=== PATIENT | female | born 1945 | race Caucasian/White ===

== ENCOUNTER → 2017-04-12 | Outpatient (REF) | payer MEDICARE, OTHER ==
[~2017-04-12] MED LIST: ACET-1748 PO; AMLO-1 PO; AMLO-104 PO; AMLO-99 PO; ASPI81TA15 PO; ASPIRIN; BACDS PO; CEP500 PO; CEPH-13 PO; CEPH250C11 PO; CIP500 PO; DOCU100T19 PO; ESC10 PO; FERR325T3 PO; FOLTX PO; GABA-549 PO; HYDR200T38 PO; IBU600 PO; LABE100T28 PO; LEV500 PO; LEVO75TA68 PO; LIDO20SO25 MM; LISI-368 PO; LOR5/325 PO; LOS50 PO; LOSA-54 PO; OTC SLEEP AID; OXYC1TAB54 PO; PHENA100 PO; PHENA200 PO; POLY119P24 PO; POLY17PO PO; SER50 PO; TRAM-420 PO; TUM500 PO; VENL-248 PO; WAR5 PO; WARF1TAB56 PO; [UNRECOGNIZED DRUG - CODE] PO; [UNRECOGNIZED DRUG - OTHER]
== END ==
LOC: ZZSENDIN 17:34
PROVIDERS: ATTEND Urology
DX: N39.0 Urinary tract infection, site not specified (principal); R31.29 Other microscopic hematuria
CPT/HCPCS: 81001; 87088

== ENCOUNTER → 2017-05-30 | Outpatient (REF) | payer MEDICARE, OTHER ==
[~2017-05-30] MED LIST changes: -HYDR200T38 PO; +HYDR200T77 PO
== END ==
LOC: ZZSENDIN 11:04
PROVIDERS: ATTEND Family Medicine
DX: R31.21 Asymptomatic microscopic hematuria (principal)
CPT/HCPCS: 82310; 82374; 82435; 82565; 82947; 84132; 84295; 84520

== ENCOUNTER → 2017-06-07 | Outpatient (CLI) | payer MEDICARE, OTHER ==
[~2017-06-07] MED LIST changes: +IOPAMIDOL 76% 100 ML INFUS BTL 100 ML ONE; +NS 0.9% 150 ML BAG 150 ML ONE
--- NOTE | 2017-06-07 11:21 | RADIOLOGY IMAGING REPORT ---
FACILITY: [facility] PATIENT NAME: Barbara Santana : 1945 MR: [id number] V: [id number] EXAM DATE: ORDERING PHYSICIAN: CHERYL FAULKNER TECHNOLOGIST: Location: [facility] - [place] Patient: Barbara Santana : 1945 Visit/Account:[id number] Date of Sevice: 06/07/2017 ABDOMEN/PELVIS W/WO CONTRAST HISTORY: Hematuria, pelvic pain TECHNIQUE: Axial images acquired through the abdomen/pelvis both with and without IV contrast.. Deisy nal and sagittal reformatting also performed. Dose Lowering Technique One of the following dose optimization techniques was utilized in the performance of this exam: Autom ated exposure control; adjustment of the mA and/or kV according to the patient's size; or use of an i terative reconstruction technique. Specific details can be referenced in the facility's radiology C T exam operational policy. CONTRAST: 100 mL Isovue-370 COMPARISON: December 25, 2014 FINDINGS: Visualized lung bases: Negative. Hepatobiliary: Negative. Spleen: Negative. Adrenals: Negative. Pancreas: Negative. Kidneys ureters and bladder: There is a 1 cm hypodensity upper pole the left kidney likely a cyst. N o evidence of urolithiasis, hydronephrosis or hydroureter Genitalia: Hysterectomy GI: Negative. Vessels/spaces/nodes: There are at least moderate vascular calcifications present Bones/soft tissues: Extensive spondylotic changes lumbar spine again noted Additional findings: None pertinent. 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
== END ==
LOC: CT 01:23
PROVIDERS: ATTEND Urology
DX: M47.896 Other spondylosis, lumbar region (principal); I87.8 Other specified disorders of veins; Z90.79 Acquired absence of other genital organ(s); N28.9 Disorder of kidney and ureter, unspecified
CPT/HCPCS: 74178; Q9967

== ENCOUNTER → 2017-06-08 | Outpatient (REF) | payer MEDICARE, OTHER ==
[~2017-06-08] MED LIST changes: -IOPAMIDOL 76% 100 ML INFUS BTL 100 ML ONE; -NS 0.9% 150 ML BAG 150 ML ONE
== END ==
LOC: ZZSENDIN 11:30
PROVIDERS: ATTEND Urology
DX: R31.0 Gross hematuria (principal)
CPT/HCPCS: 88108

== ENCOUNTER → 2018-02-16 | Outpatient (REF) | payer MEDICARE, OTHER ==
[~2018-02-16] MED LIST changes: +AMLO-113 PO; -AMLO-99 PO
[2018-02-16 10:46] LABS: INR 1.2
== END ==
LOC: ZZSENDIN 10:22
PROVIDERS: ATTEND Family Medicine
DX: Z51.81 Encounter for therapeutic drug level monitoring (principal); Z79.01 Long term (current) use of anticoagulants
CPT/HCPCS: 85610

== ENCOUNTER 2018-09-29 11:15 | Emergency (ER) | payer MEDICARE, OTHER ==
[~2018-09-29 11:15] MED LIST changes: -AMLO-113 PO; +AMLO-127 PO
[2018-09-29] MEDS ORDERED: [UNRECOGNIZED DRUG - CODE] MC (11:26)
[2018-09-29] MEDS ORDERED: LINA290C PO (11:26)
[2018-09-29] MEDS ORDERED: METH1TAB58 PO (11:26)
[2018-09-29] MEDS ORDERED: ROPI1TAB36 PO (11:26)
--- NOTE | 2018-09-29 11:29 | ER Report ---
History and Physical Time Seen By MD: 11:21 Hx. of Stated Complaint: hx of lupus. increased redness across face for the past two months that progressed to scabs and spread across chest and arms HPI/ROS CHIEF COMPLAINT: Lupus flare up HISTORY OF PRESENT ILLNESS: This is a 73-year-old female who presents to the emergency department for a lupus flareup. Patient states that about a week ago her mylar rash began to flareup, was very itchy and uncomfortable, she saw her primary care provider who put her on a low-dose steroid for 5 days. She states that the therapist continued, she has cracks, scabs and has been itching now she has what appears to be an underlying bacterial infection. There is a little bit of a rash that has developed on her chest as well. She denies chest pain or shortness of breath. She does smoke cigarettes as well. She is not on immunosuppression, she's been off this for about a year. No fevers or chills. No nausea or vomiting. She does state that she's had increased stress over the last month which could be the impetus for the flareup. REVIEW OF SYSTEMS: Constitutional: No fever, no chills. Eyes: No discharge. ENT: No sore throat. Cardiovascular: No chest pain, no palpitations. Respiratory: As above. Gastrointestinal: No abdominal pain, no vomiting. Genitourinary: No hematuria. Musculoskeletal: No back pain. Skin: As above. Neurological: No headache. Allergies: Coded Allergies: Sulfa (Sulfonamide Antibiotics) (Verified Allergy, Intermediate, RASH, 09/29/18) Influenza Virus Vaccines (Verified Adverse Reaction, Unknown, 09/29/18) Home Meds Active Scripts Prednisone (PREDNISONE) 20 Mg Tablet, 40 MG PO DAILY, #10 TAB Take in the morning. Prov:KEVIN HARRIS [facility]- 09/29/18 Cephalexin 500 Mg Tab (KEFLEX 500 MG TAB) 500 Mg Tablet, 500 MG PO Q6H, #28 TAB Prov:KEVIN HARRIS [facility]- 09/29/18 Reported Medications Desonide (DESONIDE) 5 Gm Powder, 5 GM MC 09/29/18 Ropinirole Hcl (ROPINIROLE HCL) 1 Mg Tablet, 1 MG PO TID 09/29/18 Methenamine Hippurate (METHENAMINE HIPPURATE) 1 Gm Tablet, 1 GM PO 09/29/18 Linaclotide (LINZESS) 290 Mcg Capsule, 290 MCG PO, CAPSULE 09/29/18 Tramadol Hcl (TRAMADOL HCL) 50 Mg Tablet, 50 MG PO Q4-6H PRN for PAIN 05/03/14 Gabapentin (GABAPENTIN) 300 Mg Capsule, 300 MG PO TID, CAPSULE 05/03/14 Amlodipine Besylate (AMLODIPINE BESYLATE) 10 Mg Tablet, 1 TAB PO QDAY, TAB TAKE ONE TABLET BY MOUTH EVERY DAY 05/03/14 Venlafaxine Hcl (Venlafaxine Hcl) 75 Mg Tab.osm.24, 75 MG PO 04/22/12 Warfarin Sod (Coumadin (Or Equiv)) 5 Mg Tab, 5 MG PO QDAY STOPPED COUMADIN Tuesday05/16/[address] QURESHI'S INSTRUCTION it is very important that you take your coumadin exactly as prescribed, have blood work to monitor your PT/INR values, and follow up with your health care provider as prescribed. Diet and medication can affect the PT/INR level. Keep your diet pretty much the same day to day. Many foods contain Vitamin K which helps blood to clot and can affect the way your coumadin works. You don't need to avoid foods that have Vitamin K, but you do need to eat about the same amount of them every day. Be sure to tell your provider before changing your diet for any reason (weight loss, illness, etc.) Do not start or discontinue any medications, prescribed or over the counter, except on the advise of your provider or pharmacist. Coumadin (Warfarin) increases the risk of bleeding. 04/11/12 Losartan Potassium (COZAAR (OR EQUIV)) 50 Mg Tab, 50 MG PO QAM, #30 07/07/11 Levothyroxine Sodium (Levothyroxine Sodium) 75 Mcg Tablet, 88 MCG PO DAILY, 0 Refills 10/21/09 Discontinued Reported Medications Hydroxychloroquine Sulfate (PLAQUENIL) 200 Mg Tablet, 200 MG PO BID, #10 TAB TAKE 1 TABLET BY MOUTH EVERY DAY WITH FOOD 05/16/13 Aspirin (ASPIRIN) 81 Mg Tablet.dr, 81 MG PO BID 01/05/12 Clonazepam (CLONAZEPAM ODT) 0.5 Mg Tabdp, 0.5 MG PO QHS 07/03/11 Discontinued Scripts Hydrocodone Bit/Acetaminophen (HYDROCODON-ACETAMINOPHEN 5-325) 1 Each Tablet, 1 EACH PO Q4-6H for PAIN, #12 TAKE ONE TABLET BY MOUTH EVERY 4-6 HOURS NEEDED FOR PAIN Prov:JENNIFER MILAN MD 05/03/14 Polyethylene Glycol 3350 (MIRALAX) 119 Gm Powder, 119 GM PO BID for 30 Days Prov:JENNIFER MILAN MD 05/03/14 Past Medical/Surgical History The patient has a past medical and surgical history of DVT, hypertension, slow bowels, pain to the right arm, back pain, lupus, pulmonary embolus, depression, bladder lift with oophorectomy, partial hysterectomy, rotator cuff repair, back surgery, tonsillectomy, cataract removal. Reviewed Nurses Notes: Yes Hx Smoking: Yes (1/2 PPD) Smoking Status: Current: Every Day Smoker Hx Substance Use Disorder: No Hx Alcohol Use: No Constitutional Vital Sign - Last 24 Hours 09/29/18 09/29/18 09/29/18 09/29/18 11:19 11:30 12:20 12:20 Temp 98.3 Pulse 77 81 71 Resp 20 18 B/P (MAP) 121/61 120/62 (81) Pulse Ox 95 88 91 O2 Delivery Room Air Nasal Cannula O2 Flow Rate 0.5 09/29/18 09/29/18 09/29/18 12:27 12:30 13:00 Pulse 70 76 74 Resp 18 B/P (MAP) 114/57 (76) 99/50 (66) Pulse Ox 89 98 Physical Exam General Appearance: The patient is alert, has no immediate need for airway protection and no signs of toxicity. Eyes: Pupils equal and round no pallor or injection. ENT, Mouth: Mucous membranes are moist. Extending Malar rash to the external ears, bilaterally with some lesions that are crusted over, no drainage. TMs are pearly escobar, landmarks noted, no involvement. Normal ear canals. Respiratory: There are some faint inspiratory and x-ray wheezes mixed with some coarse lung sounds throughout however the patient is not short of breath. Cardiovascular: Regular rate and rhythm. No murmurs, clicks or rubs. Gastrointestinal: Abdomen is soft and non tender, no masses, bowel sounds normal. Neurological: Alert and oriented 4. Moving all extremities. Following all commands. No focal neurodeficits. Skin: Malar rash over nose, cheeks and chin, extending to the ears, with some scattered lesions to the chest , the entire area erythematous with healing lesions and large multiple scabs present, there doesn't appear to be the start of an underlying cellulitic infection. The cheeks are warm and painful to touch. No drainage currently. Musculoskeletal: Neck is supple non tender. Extremities are nontender, nonswollen and have full range of motion. DIFFERENTIAL DIAGNOSIS: After history and physical exam differential diagnosis was considered for cellulitis, lupus flare, pneumonia. Medical Decision Making Data Points Result Diagram: 09/29/18 1136 09/29/18 1136 Laboratory Hematology Test 09/29/18 11:36 09/29/18 11:56 09/29/18 14:45 Red Blood Count 3.12 M/uL (4.17-5.56) Mean Corpuscular Volume 80.2 fL (80.0-96.0) Mean Corpuscular Hemoglobin 26.9 pg (26.0-33.0) Mean Corpuscular Hemoglobin Concent 33.5 g/dL (32.0-36.0) Red Cell Distribution Width 18.9 % (11.5-14.5) Mean Platelet Volume 7.1 fL (7.2-11.1) Neutrophils (%) (Auto) 77.2 % (39.4-72.5) Lymphocytes (%) (Auto) 13.2 % (17.6-49.6) Monocytes (%) (Auto) 9.1 % (4.1-12.4) Eosinophils (%) (Auto) 0.0 % (0.4-6.7) Basophils (%) (Auto) 0.5 % (0.3-1.4) Nucleated RBC Relative Count (auto) 0.0 /100WBC Neutrophils # (Auto) 3.0 K/uL (2.0-7.4) Lymphocytes # (Auto) 0.5 K/uL (1.3-3.6) Monocytes # (Auto) 0.4 K/uL (0.3-1.0) Eosinophils # (Auto) 0.0 K/uL (0.0-0.5) Basophils # (Auto) 0.0 K/uL (0.0-0.1) Nucleated RBC Absolute Count (auto) 0.00 K/uL Peripheral Blood Smear No Y/N Erythrocyte Sedimentation Rate 23 mm/HOUR (0-30) Sodium Level 125 mmol/L (137-145) Potassium Level 2.7 mmol/L (3.5-5.0) Chloride Level 91 mmol/L (98-107) Carbon Dioxide Level 24 mmol/L (22-31) Blood Urea Nitrogen 9 mg/dl (7-18) Creatinine 0.60 mg/dl (0.52-1.04) Glomerular Filtration Rate Calc > 60.0 Random Glucose 121 mg/dl (75-110) Calcium Level 8.1 mg/dl (8.4-10.2) Magnesium Level 1.6 mg/dl (1.7-2.2) Total Bilirubin 0.4 mg/dl (0.2-1.3) Aspartate Amino Transf (AST/SGOT) 27 U/L (0-35) Alanine Aminotransferase (ALT/SGPT) 44 U/L (0-56) Alkaline Phosphatase 110 U/L (0-126) C-Reactive Protein 1.4 mg/dl (<1.0) Total Protein 6.0 g/dl (6.3-8.2) Albumin 3.3 g/dl (3.5-5.0) Prothrombin Time 23.2 seconds (12.0-14.4) Prothromb Time International Ratio 2.02 Activated Partial Thromboplast Time 46 seconds (23-35) Urine Color Straw Urine Clarity Clear Urine pH 6.0 pH (4.8-9.5) Urine Specific [place] 1.002 Urine Protein Negative mg/dL (NEGATIVE) Urine Glucose (UA) Negative mg/dL (NEGATIVE) Urine Ketones Negative mg/dL (NEGATIVE) Urine Blood Small (NEGATIVE) Urine Nitrite Negative (NEGATIVE) Urine Bilirubin Negative (NEGATIVE) Urine Urobilinogen Negative mg/dL (0.2-1.9) Urine Leukocyte Esterase Negative (NEGATIVE) Urine RBC <1 /HPF (0-2/HPF) Urine WBC <1 /HPF (0-5/HPF) Urine Squamous Epithelial Cells Few /LPF (</=FEW) Urine Bacteria Negative /HPF (NONE-FEW) Urine Mucus None /HPF (NONE-FEW) Urine Osmolality 80 mosm/K (500-800) Urine Random Sodium 5 MEQ/L Chemistry Test 09/29/18 11:36 09/29/18 11:56 09/29/18 14:45 White Blood Count 3.9 k/uL (4.5-11.0) Red Blood Count 3.12 M/uL (4.17-5.56) Hemoglobin 8.4 g/dL (12.0-16.0) Hematocrit 25.0 % (34.0-47.0) Mean Corpuscular Volume 80.2 fL (80.0-96.0) Mean Corpuscular Hemoglobin 26.9 pg (26.0-33.0) Mean Corpuscular Hemoglobin Concent 33.5 g/dL (32.0-36.0) Red Cell Distribution Width 18.9 % (11.5-14.5) Platelet Count 269 K/uL (150-450) Mean Platelet Volume 7.1 fL (7.2-11.1) Neutrophils (%) (Auto) 77.2 % (39.4-72.5) Lymphocytes (%) (Auto) 13.2 % (17.6-49.6) Monocytes (%) (Auto) 9.1 % (4.1-12.4) Eosinophils (%) (Auto) 0.0 % (0.4-6.7) Basophils (%) (Auto) 0.5 % (0.3-1.4) Nucleated RBC Relative Count (auto) 0.0 /100WBC Neutrophils # (Auto) 3.0 K/uL (2.0-7.4) Lymphocytes # (Auto) 0.5 K/uL (1.3-3.6) Monocytes # (Auto) 0.4 K/uL (0.3-1.0) Eosinophils # (Auto) 0.0 K/uL (0.0-0.5) Basophils # (Auto) 0.0 K/uL (0.0-0.1) Nucleated RBC Absolute Count (auto) 0.00 K/uL Peripheral Blood Smear No Y/N Erythrocyte Sedimentation Rate 23 mm/HOUR (0-30) Glomerular Filtration Rate Calc > 60.0 Calcium Level 8.1 mg/dl (8.4-10.2) Magnesium Level 1.6 mg/dl (1.7-2.2) Total Bilirubin 0.4 mg/dl (0.2-1.3) Aspartate Amino Transf (AST/SGOT) 27 U/L (0-35) Alanine Aminotransferase (ALT/SGPT) 44 U/L (0-56) Alkaline Phosphatase 110 U/L (0-126) C-Reactive Protein 1.4 mg/dl (<1.0) Total Protein 6.0 g/dl (6.3-8.2) Albumin 3.3 g/dl (3.5-5.0) Prothrombin Time 23.2 seconds (12.0-14.4) Prothromb Time International Ratio 2.02 Activated Partial Thromboplast Time 46 seconds (23-35) Urine Color Straw Urine Clarity Clear Urine pH 6.0 pH (4.8-9.5) Urine Specific [place] 1.002 Urine Protein Negative mg/dL (NEGATIVE) Urine Glucose (UA) Negative mg/dL (NEGATIVE) Urine Ketones Negative mg/dL (NEGATIVE) Urine Blood Small (NEGATIVE) Urine Nitrite Negative (NEGATIVE) Urine Bilirubin Negative (NEGATIVE) Urine Urobilinogen Negative mg/dL (0.2-1.9) Urine Leukocyte Esterase Negative (NEGATIVE) Urine RBC <1 /HPF (0-2/HPF) Urine WBC <1 /HPF (0-5/HPF) Urine Squamous Epithelial Cells Few /LPF (</=FEW) Urine Bacteria Negative /HPF (NONE-FEW) Urine Mucus None /HPF (NONE-FEW) Urine Osmolality 80 mosm/K (500-800) Urine Random Sodium 5 MEQ/L Coagulation Test 09/29/18 11:56 Prothrombin Time 23.2 seconds Prothromb Time International Ratio 2.02 Activated Partial Thromboplast Time 46 seconds Urinalysis Test 09/29/18 14:45 Urine Color Straw Urine Clarity Clear Urine pH 6.0 pH (4.8-9.5) Urine Specific [place] 1.002 Urine Protein Negative mg/dL (NEGATIVE) Urine Glucose (UA) Negative mg/dL (NEGATIVE) Urine Ketones Negative mg/dL (NEGATIVE) Urine Blood Small (NEGATIVE) Urine Nitrite Negative (NEGATIVE) Urine Bilirubin Negative (NEGATIVE) Urine Urobilinogen Negative mg/dL (0.2-1.9) Urine Leukocyte Esterase Negative (NEGATIVE) Urine RBC <1 /HPF (0-2/HPF) Urine WBC <1 /HPF (0-5/HPF) Urine Squamous Epithelial Cells Few /LPF (</=FEW) Urine Bacteria Negative /HPF (NONE-FEW) Urine Mucus None /HPF (NONE-FEW) Urine Osmolality 80 mosm/K (500-800) Urine Random Sodium 5 MEQ/L EKG/Imaging EKG Interpretation 12 lead EKG: Time of EKG 1330. Rhythm: Normal sinus rhythm, that she could've rate 81 bpm. [place]: normal QRS: normal ST segments: Poor T-wave progression in the V leads, inverted T waves in V3, V4, V5 and V6. No ST depression or elevation identified. Imaging PATIENT NAME: Barbara Santana : 1945 MR: [id number] V: [id number] EXAM DATE: ORDERING PHYSICIAN: KEVIN HARRIS TECHNOLOGIST: Location: [facility] - [place] Patient: Barbara Santana : 1945 Visit/Account:[id number] Date of Sevice: 09/29/2018 Exam type: CHEST PA LAT History: Lupus flare Comparison: May 09, 2013 Findings: There is mild right apical pleural thickening. The lungs are free of acute effusions infiltrates or edema. The cardiac silhouette is normal in size. Trachea is in midline.. IMPRESSION: 1. No acute cardiac pulmonary process is seen Report Dictated By: Marianne Downs MD at 09/29/2018 12:54 PM Report E-Signed By: Marianne Downs MD at 09/29/2018 12:55 PM WSN:LARY ED Course/Re-evaluation Clinical Indication for ER IV: Hydration, IV Access ED Course The patient was admitted to room. A history of physical were obtained. Differential diagnoses were considered. An IV was started. A CBC, CMP were obtained. A 1 L normal saline bolus was given. CBC showing the WBCs 3.9, H&H 8.4 and 25, platelets 269, sodium 125, potassium 2.7, normal creatinine, magnesium 1.6, CRP 1.4, normal ESR, total protein 6.0, urine with small blood, otherwise unremarkable, urine osmolality 80. Negative two-view chest x-ray. EKG showing normal sinus rhythm with poor T-wave progression. I did review the laboratory studies with the patient, I did explain to her that I was concerned with the anemia as well as the low potassium and low sodium of October was able to contact Dr. Espinoza's office, her primary care provider I did have a chemistry from 2018 and she did have low sodium then, and according to patient she has had low sodium for some time. The potassium on the 2018 panel was normal. I did speak with Dr. marisela Lopes as noted below, he did, and evaluate the patient, the patient does have some reluctance to admission, she does prefer to go home, they're to [facility] and I are both agreeable with a discharge, she will follow- up with her primary care provider and learning and development administrator next week for reevaluation. She will also return Tuesday to have a repeat CBC and BMP. There were additional lab studies sent out in the hopes to accelerate her follow-up with her primary care provider. Patient was given a subsequent 40mg/day prednisone burst x5 days, she was also given 125 mg IV Solu-Medrol in the ER, I also started her on Keflex. The patient will return to the ER for any other concerns or worsening symptoms. Patient was agreeable with this plan of care and discharged home. The patient's INR is 2.02. 09/29/2018 1:44:33 pm I did speak with Dr. Lopes, the hospitalist allergist/pediatric pulmonologist, he will come and evaluate the patient for possible admission. Decision to Disposition Date: Sep 29, 2018 Decision to Disposition Time: 14:54 Depart Departure Latest Vital Signs Vital Signs Date Time Temp Pulse Resp B/P (MAP) Pulse Ox O2 Delivery O2 Flow Rate FiO2 09/29/18 13:00 74 99/50 (66) 98 09/29/18 12:27 18 09/29/18 12:20 Nasal Cannula 0.5 09/29/18 11:19 98.3 Impression: Primary Impression: Cellulitis of face Additional Impressions: Malar rash Lupus Anemia Hypokalemia Hyponatremia Condition: Improved Disposition: HOME OR SELF-CARE Referrals: JENNIFER ROSS JOHN A MD New Scripts Prednisone (PREDNISONE) 20 Mg Tablet 40 MG PO DAILY, #10 TAB Take in the morning. Prov: KEVIN HARRISP-BC 09/29/18 Cephalexin 500 Mg Tab (KEFLEX 500 MG TAB) 500 Mg Tablet 500 MG PO Q6H, #28 TAB Prov: KEVIN HARRISP-BC 09/29/18 Patient Instructions: Cellulitis (ED), Hypokalemia (ED), Hyponatremia (ED), Lupus Erythematosus (DC) Additional Instructions: Please stop your aspirin. Follow up with your learning and development administrator and primary care provider next week for reevaluation. Return to the laboratory Tuesday for a redraw on your CBC and BMP. Please bring the prescription to the laboratory with you. Take the Keflex as prescribed. Take the higher dose of prednisone for the next 5 days. You may need to restart your Plaquenil. You may need a colonoscopy as well, this could be where you are losing blood, he can follow-up with Dr. Gutierres or Dr. Ross locally for colonoscopy consultation. Please follow up with Urology too. Problem Qualifiers Additional Impressions: Anemia Anemia type: unspecified type Qualified Codes: D64.9 - Anemia, unspecified KEVIN HARRIS PSYCHOLOGY CLINICIAN-BC Sep 29, 2018 11:29
[2018-09-29] MEDS ORDERED: NS(*) 0.9% 1000 ML BAG 1,000 ML IV ONE (11:50)
[2018-09-29] MEDS ORDERED: methylPREDNIS SUCC 125 MG/2ML IVP ONE (11:50)
[2018-09-29] MEDS ORDERED: ALBUTEROL/IPRATROPIUM 3 ML NEB NEB ONE (11:55)
[2018-09-29 11:56] LABS: PLATELET COUNT, AUTOMATED 269 K/uL (150-450)
[2018-09-29 13:00] VITALS: BP 99/50
--- NOTE | 2018-09-29 13:02 | RADIOLOGY IMAGING REPORT ---
FACILITY: [facility] - [place] PATIENT NAME: Barbara Santana : 1945 MR: [id number] V: [id number] EXAM DATE: ORDERING PHYSICIAN: KEVIN HARRIS TECHNOLOGIST: Location: Patient: Barbara Santana : 1945 Visit/Account:[id number] Date of Sevice: 09/29/2018 Exam type: CHEST PA LAT History: Lupus flare Comparison: May 09, 2013 Findings: There is mild right apical pleural thickening. The lungs are free of acute effusions infiltrates or edema. The cardiac silhouette is normal in size. Trachea is in midline.. IMPRESSION: 1. No acute cardiac pulmonary process is seen Report Dictated By: Marianne Downs MD at 09/29/2018 12:54 PM Report E-Signed By: Marianne Downs MD at 09/29/2018 12:55 PM WSN:AMICIVN
--- NOTE | 2018-09-29 13:45 | EKG ---
FACILITY: [facility] PATIENT NAME: LUIS HOLLEY : [id number] MR: [id number] V: [id number] EXAM DATE: ORDERING PHYSICIAN: KEVIN HARRIS TECHNOLOGIST: RHONDA Test Reason : low potassium Blood Pressure : / mmHG Vent. Rate : 081 BPM Atrial Rate : 081 BPM P-R Int : 140 ms QRS Dur : 080 ms QT Int : 394 ms P-R-T Axes : 074 062 025 degrees QTc Int : 457 ms Normal sinus rhythm ST and T wave abnormality, consider inferolateral ischemia Abnormal ECG When compared with ECG of 18-MAY-2013 06:30, T wave inversion now evident in Inferior leads T wave inversion now evident in Anterolateral leads Confirmed by SHRUTHI BAUER ([id number]) on 09/29/2018 10:15:04 PM Referred By: Confirmed By:SHRUTHI BAUER
[2018-09-29] MEDS ORDERED: MAGNESIUM SUL* 2 GM/50 ML IVPB 50 ML IVPB ONE (14:40)
[2018-09-29] MEDS ORDERED: POTASSIUM CHL 20 MEQ TABCR PO SCH (14:40)
[2018-09-29] MEDS ORDERED: CEPH500T7 PO (15:16)
[2018-09-29] MEDS ORDERED: PRED20TA6 PO (15:16)
--- NOTE | 2018-09-29 15:38 | Hospitalist Consultation ---
History of Present Illness Requesting Physician Josafat Reason for Consult Hyponatremia, anemia, hypokalemia History of Present Illness 73yo female with a h/o SLE, chronic cigarette use, and hyponatremia who came to the ER for worsening face rash related to SLE. For about the last 6 weeks, she has had a progressive malar rash. It is like what she gets with SLE. Prior to the rash she had a self limited eruption of mouth sores. She was given a course of prednisone by her PCP just recently for the malar rash, which hasn't helped. She is also having a rash on the dorsal aspect of her fingers of the right hand. She denies f/c/MCMAHAN/n/v/diarrhea/melena/bloody stools/orthopnea. She reports having a low sodium for at least 2 years. She denies any h/o CAD or CVD. History Problems: (1) IBS (irritable bowel syndrome) (2) Fibromyalgia (3) Depression (4) History of DVT (deep vein thrombosis) Status: Chronic (5) RLS (restless legs syndrome) (6) Recurrent UTI (7) Hematuria (8) SLE (systemic lupus erythematosus) Status: Chronic Home Meds Reported Medications Desonide (DESONIDE) 5 Gm Powder, 5 GM MC 09/29/18 Ropinirole Hcl (ROPINIROLE HCL) 1 Mg Tablet, 1 MG PO TID 09/29/18 Methenamine Hippurate (METHENAMINE HIPPURATE) 1 Gm Tablet, 1 GM PO 09/29/18 Linaclotide (LINZESS) 290 Mcg Capsule, 290 MCG PO, CAPSULE 09/29/18 Tramadol Hcl (TRAMADOL HCL) 50 Mg Tablet, 50 MG PO Q4-6H PRN for PAIN 05/03/14 Gabapentin (GABAPENTIN) 300 Mg Capsule, 300 MG PO TID, CAPSULE 05/03/14 Amlodipine Besylate (AMLODIPINE BESYLATE) 10 Mg Tablet, 1 TAB PO QDAY, TAB TAKE ONE TABLET BY MOUTH EVERY DAY 05/03/14 Venlafaxine Hcl (Venlafaxine Hcl) 75 Mg Tab.osm.24, 75 MG PO 04/22/12 Warfarin Sod (Coumadin (Or Equiv)) 5 Mg Tab, 5 MG PO QDAY STOPPED COUMADIN Tuesday05/16/[address] QURESHI'S INSTRUCTION it is very important that you take your coumadin exactly as prescribed, have blood work to monitor your PT/INR values, and follow up with your health care provider as prescribed. Diet and medication can affect the PT/INR level. Keep your diet pretty much the same day to day. Many foods contain Vitamin K which helps blood to clot and can affect the way your coumadin works. You don't need to avoid foods that have Vitamin K, but you do need to eat about the same amount of them every day. Be sure to tell your provider before changing your diet for any reason (weight loss, illness, etc.) Do not start or discontinue any medications, prescribed or over the counter, except on the advise of your provider or pharmacist. Coumadin (Warfarin) increases the risk of bleeding. 04/11/12 Losartan Potassium (COZAAR (OR EQUIV)) 50 Mg Tab, 50 MG PO QAM, #30 07/07/11 Levothyroxine Sodium (Levothyroxine Sodium) 75 Mcg Tablet, 88 MCG PO DAILY, 0 Refills 10/21/09 Discontinued Reported Medications Hydroxychloroquine Sulfate (PLAQUENIL) 200 Mg Tablet, 200 MG PO BID, #10 TAB TAKE 1 TABLET BY MOUTH EVERY DAY WITH FOOD 05/16/13 Aspirin (ASPIRIN) 81 Mg Tablet.dr, 81 MG PO BID 01/05/12 Clonazepam (CLONAZEPAM ODT) 0.5 Mg Tabdp, 0.5 MG PO QHS 07/03/11 Discontinued Scripts Hydrocodone Bit/Acetaminophen (HYDROCODON-ACETAMINOPHEN 5-325) 1 Each Tablet, 1 EACH PO Q4-6H for PAIN, #12 TAKE ONE TABLET BY MOUTH EVERY 4-6 HOURS NEEDED FOR PAIN Prov:JENNIFER MILAN MD 05/03/14 Polyethylene Glycol 3350 (MIRALAX) 119 Gm Powder, 119 GM PO BID for 30 Days Prov:JENNIFER MILAN MD 05/03/14 Allergies: Coded Allergies: Sulfa (Sulfonamide Antibiotics) (Verified Allergy, Intermediate, RASH, 09/29/18) Influenza Virus Vaccines (Verified Adverse Reaction, Unknown, 09/29/18) Other Social/Family Hx 1/2 to 1ppd for over 50yrs. No current alcohol use. Lives with her SO. Hx Smoking: Yes (1/2 PPD) Smoking Status: Current: Every Day Smoker Caffeine Intake: Coffee Caffeine/Cups Per Day: 6 Hx Alcohol Use: No Hx Substance Use Disorder: No Review of Systems All Systems Reviewed/Normal: Yes, Except as Noted Exam Vital Signs Vital Signs Date Time Temp Pulse Resp B/P (MAP) Pulse Ox O2 Delivery O2 Flow Rate FiO2 09/29/18 13:00 74 99/50 (66) 98 09/29/18 12:27 18 09/29/18 12:20 Nasal Cannula 0.5 09/29/18 11:19 98.3 General Appearance: Alert, Awake, No Acute Distress Neuro: No Gross deficits ENT: Moist Mucous Membranes Cardiovascular: Regular Rate and Rhythm Respiratory: Clear to Auscultation GI: Abd Soft and Non-Tender Extremities: No Edema Integumentary: Other (Erthematous, patchy, well demarcated rash on cheeks/ears /forehead/fingers/chest. Most areas with central scabbing) Medical Decision Making Data Points Result Diagram: 09/29/18 1136 09/29/18 1136 Item Value Date Time Erythrocyte Sedimentation Rate 23 mm/HOUR 09/29/18 1136 Neutrophils (%) (Auto) 77.2 % H 09/29/18 1136 Lymphocytes (%) (Auto) 13.2 % L 09/29/18 1136 Monocytes (%) (Auto) 9.1 % 09/29/18 1136 Eosinophils (%) (Auto) 0.0 % L 09/29/18 1136 Total Bilirubin 0.4 mg/dl 09/29/18 1136 Aspartate Amino Transf (AST/SGOT) 27 U/L 09/29/18 1136 Magnesium Level 1.6 mg/dl L 09/29/18 1136 Alanine Aminotransferase (ALT/SGPT) 44 U/L 09/29/18 1136 Alkaline Phosphatase 110 U/L 09/29/18 1136 C-Reactive Protein 1.4 mg/dl H 09/29/18 1136 Total Protein 6.0 g/dl L 09/29/18 1136 Albumin 3.3 g/dl L 09/29/18 1136 EKG / Imaging Imaging CXR - 1. No acute cardiac pulmonary process is seen Assessment and Plan Problems: (1) Anemia Status: Acute Assessment & Plan: Asymptomatic. BP/P wnl. Likely, slowly worsening. We don't have recent labs to compare ([facility] or Dr. Bean's office). She reports having recent normal stool testing for colon cancer and more distant normal colonoscopy. She is on warfarin and ASA. No melena, increased BM frequency or cliff blood in stool. She does have a h/o hematuria that has been followed by Dr. Soto. Certainly, this could be related to SLE. I offered admission to expedite the work up, but she wanted to do it as an outpatient. She is to get an UA, iron studies, B12 and Folate, reticulocyte count, and ferritin studies done. She is to get a CBC on 10/02. She likely needs a colonoscopy. I told her to stop ASA because it was for primary prevention only. (2) Hypokalemia Status: Acute Assessment & Plan: Etiology unclear. She had a low potassium on 05/30/17. She is not on any offending medications. She denies vomiting or diarrhea. Mg was low. As mentioned above, she was offered admission for repletion, but also closer monitoring, but she wants to get replacement in the ER and then have close followup. She is to get a BMP on 10/02. (3) Hyponatremia Status: Chronic Assessment & Plan: She reports having this for a couple of years. She had a sodium of 124 back on 05/30/[address] Bean had more recent records showing a sodium of 127. She isn't on any diuretics, but is on an SSRI. She is to get a urine osmolality and urine sodium done before being sent from the ER. She is to get a BMP on 10/02. (4) Malar rash Status: Acute Assessment & Plan: Secondary to SLE. She has been off of Plaquenil for about a year. She has had 5 day course of 20mg of prednisone with little improvement. Likely, she needs to be back on Plaquenil. She is going to follow up with Dr. Mejias next week. (5) History of DVT (deep vein thrombosis) Status: Chronic Assessment & Plan: Chronically on warfarin. (6) SLE (systemic lupus erythematosus) Status: Chronic Assessment & Plan: Reportedly no systemic involvement, but with the h/o hematuria, and new leukopenia/anemia; concerned that it has advanced off of treatment. See above. Copies to: MAEGAN BEAN MD; KEVIN HARRIS [employer]OLDING ENGINEER-; PK MEJIAS MD ; Venous Thromboembolism Antithrombotics Is Pt On Any Antithrombotics?: Yes Exam Sepsis Risk: No Definite Risk Problem Qualifiers (1) Anemia: Anemia type: unspecified type Qualified Codes: D64.9 - Anemia, unspecified SHRTUHI BAUER MD Sep 29, 2018 15:38
[2018-09-29 15:52] LABS: INR 2.02
== END 2018-09-29 15:20 | disposition home or self-care (01) ==
LOC: ER 11:23
DX: M32.9 Systemic lupus erythematosus, unspecified (principal); D64.9 Anemia, unspecified; Z86.718 Personal history of other venous thrombosis and embolism; Z79.01 Long term (current) use of anticoagulants; R21 Rash and other nonspecific skin eruption; E87.1 Hypo-osmolality and hyponatremia; E87.6 Hypokalemia; Z79.82 Long term (current) use of aspirin; I10 Essential (primary) hypertension; Z86.711 Personal history of pulmonary embolism; F32.9 Major depressive disorder, single episode, unspecified
CPT/HCPCS: 71046; 81001; 83735; 83935; 84300; 85025; 85610; 85651; 85730; 86140; 93005; 94640; 96361; 96374; 96375; 99284; A9270; J2930; J3475; J7030; J7620; 82040; 82247; 82310; 82374; 82435; 82565; 82607; 82728; 82746; 82947; 83540; 83550; 84075; 84132; 84155; 84295; 84450; 84460; 84520; 85045

== ENCOUNTER → 2018-10-02 | Outpatient (CLI) | payer MEDICARE, OTHER ==
[~2018-10-02] MED LIST changes: +CEPH500T7 PO; +LINA290C PO; +METH1TAB58 PO; +PRED20TA6 PO; +ROPI1TAB36 PO; +[UNRECOGNIZED DRUG - CODE] MC
[2018-10-02 12:29] LABS: PLATELET COUNT, AUTOMATED 359 K/uL (150-450)
== END ==
LOC: LAB 11:28
PROVIDERS: ATTEND Nurse Practitioner Family
DX: E87.6 Hypokalemia (principal); E87.1 Hypo-osmolality and hyponatremia; D64.9 Anemia, unspecified; E83.42 Hypomagnesemia
CPT/HCPCS: 36415; 82310; 82374; 82435; 82565; 82947; 84132; 84295; 84520; 85025

== ENCOUNTER 2018-10-23 11:55 | Inpatient (IN) | payer MEDICARE, OTHER ==
[~2018-10-23] VITALS: Ht 160 cm; Wt 60.6 kg
--- NOTE | 2018-10-23 11:58 | ER Report ---
History and Physical Time Seen By MD: 11:54 HPI/ROS CHIEF COMPLAINT: Hyponatremia, hypokalemia HISTORY OF PRESENT ILLNESS: Patient is a 73-year-old female here with complaints of hyponatremia, hypokalemia, several day history of general malaise today with complaints of mild altered mental status, somnolence. Patient's . Patient does have a history of lupus, with cutaneous manifestations currently on prednisone. Patient was seen at her primary care provider's office and was found to have hyponatremia referred to the emergency department. Patient is neurovascularly intact at time of evaluation, cranial nerves are intact. Patient is afebrile at time of evaluation REVIEW OF SYSTEMS: Constitutional: No fever, no chills. Eyes: No discharge. ENT: No sore throat. Cardiovascular: No chest pain, no palpitations. Respiratory: No cough, no shortness of breath. Gastrointestinal: No abdominal pain, no vomiting. Genitourinary: No hematuria. Musculoskeletal: No back pain. Skin: No rashes. Neurological: No headache.+ Mild somnolence, cranial nerves intact, moving all extremities spontaneously Allergies: Coded Allergies: Sulfa (Sulfonamide Antibiotics) (Verified Allergy, Intermediate, RASH, 09/29/18) Influenza Virus Vaccines (Verified Adverse Reaction, Unknown, 09/29/18) Home Meds Active Scripts Prednisone (PREDNISONE) 20 Mg Tablet, 40 MG PO DAILY, #10 TAB Take in the morning. Prov:KEVIN HARRIS [employer]- 09/29/18 Reported Medications Levothyroxine Sodium (LEVOTHYROXINE SODIUM) 50 Mcg Tablet, 50 MCG PO QDAY, TAB 10/23/18 Atorvastatin Calcium (LIPITOR) 10 Mg Tablet, 1 TAB PO QDAY, TAB 10/23/18 Venlafaxine Hcl (EFFEXOR XR) 150 Mg Cap.er.24h, 150 MG PO QDAY 10/23/18 Losartan/Hydrochlorothiazide (LOSARTAN-HCTZ 100-12.5 MG TAB) 1 Each Tablet, 1 EACH PO QDAY 10/23/18 Ropinirole Hcl (ROPINIROLE HCL) 1 Mg Tablet, 1 MG PO QHS 09/29/18 Methenamine Hippurate (METHENAMINE HIPPURATE) 1 Gm Tablet, 1 GM PO BID 09/29/18 Tramadol Hcl (TRAMADOL HCL) 50 Mg Tablet, 50 MG PO Q4-6H PRN for PAIN 05/03/14 Gabapentin (GABAPENTIN) 300 Mg Capsule, 300 MG PO TID, CAPSULE 05/03/14 Amlodipine Besylate (AMLODIPINE BESYLATE) 10 Mg Tablet, 1 TAB PO QDAY, TAB TAKE ONE TABLET BY MOUTH EVERY DAY 05/03/14 Venlafaxine Hcl (Venlafaxine Hcl) 75 Mg Tab.osm.24, 75 MG PO DAILY Take with 150mg tab for a total of 225mg daily 04/22/12 Warfarin Sod (Coumadin (Or Equiv)) 5 Mg Tab, 5 MG PO QDAY 2.5mg on TUE, TUE, TUE and 5mg all other days 04/11/12 Discontinued Reported Medications Desonide (DESONIDE) 5 Gm Powder, 5 GM MC 09/29/18 Linaclotide (LINZESS) 290 Mcg Capsule, 290 MCG PO, CAPSULE 09/29/18 Discontinued Scripts Cephalexin 500 Mg Tab (KEFLEX 500 MG TAB) 500 Mg Tablet, 500 MG PO Q6H, #28 TAB Prov:KEVIN HARRIS [employer]-BC 09/29/18 Hx Smoking: Yes (1/2 PPD) Smoking Status: Current: Every Day Smoker Hx Substance Use Disorder: No Hx Alcohol Use: No Constitutional Vital Sign - Last 24 Hours 10/23/18 10/23/18 10/23/18 10/23/18 11:55 11:59 12:00 12:15 Temp 98.2 Pulse 68 81 72 Resp 16 21 B/P (MAP) 130/71 (90) 130/71 130/73 (92) Pulse Ox 92 96 O2 Delivery Room Air 10/23/18 10/23/18 10/23/18 10/23/18 12:30 12:35 12:53 12:53 Pulse 68 65 Resp 17 18 B/P (MAP) 124/70 (88) Pulse Ox 97 97 O2 Delivery Nasal Cannula O2 Flow Rate 3.0 10/23/18 10/23/18 10/23/18 10/23/18 12:55 12:58 12:58 13:00 Pulse 67 63 Resp 16 18 B/P (MAP) 140/75 (96) Pulse Ox 100 96 O2 Delivery Room Air 10/23/18 10/23/18 10/23/18 10/23/18 13:15 13:35 13:40 14:20 Pulse 72 82 88 85 Resp 18 20 Pulse Ox 88 Physical Exam General Appearance: The patient is alert, has no immediate need for airway protection and no signs of toxicity. No acute distress Eyes: Pupils equal and round no pallor or injection. ENT, Mouth: Mucous membranes are moist. Respiratory: There are no retractions, lungs are clear to auscultation. Cardiovascular: Regular rate and rhythm. Gastrointestinal: Abdomen is soft and non tender, no masses, bowel sounds normal. Neurological: No focal neurological deficits, alert and oriented Skin: Malar facial rash, scattered skin lesions and ulceration of the upper extremities Musculoskeletal: Neck is supple non tender. Extremities are nontender, nonswollen and have full range of motion. DIFFERENTIAL DIAGNOSIS: After history and physical exam differential diagnosis was considered for altered mental status including but not limited to hypoglycemia, infectious process, electrolyte abnormality, head injury and intoxicants. Medical Decision Making Data Points Result Diagram: 10/23/18 1204 10/23/18 1204 Laboratory Hematology Test 10/23/18 12:04 White Blood Count 5.1 k/uL (4.5-11.0) Red Blood Count 3.41 M/uL (4.17-5.56) L Hemoglobin 8.9 g/dL (12.0-16.0) *L Hematocrit 26.7 % (34.0-47.0) *L Mean Corpuscular Volume 78.4 fL (80.0-96.0) L Mean Corpuscular Hemoglobin 26.2 pg (26.0-33.0) Mean Corpuscular Hemoglobin Concent 33.5 g/dL (32.0-36.0) Red Cell Distribution Width 19.1 % (11.5-14.5) H Platelet Count 384 K/uL (150-450) Mean Platelet Volume 7.0 fL (7.2-11.1) L Neutrophils (%) (Auto) 77.1 % (39.4-72.5) H Lymphocytes (%) (Auto) 9.6 % (17.6-49.6) L Monocytes (%) (Auto) 12.9 % (4.1-12.4) H Eosinophils (%) (Auto) 0.0 % (0.4-6.7) L Basophils (%) (Auto) 0.4 % (0.3-1.4) Nucleated RBC Relative Count (auto) 0.1 /100WBC Neutrophils # (Auto) 4.0 K/uL (2.0-7.4) Lymphocytes # (Auto) 0.5 K/uL (1.3-3.6) L Monocytes # (Auto) 0.7 K/uL (0.3-1.0) Eosinophils # (Auto) 0.0 K/uL (0.0-0.5) Basophils # (Auto) 0.0 K/uL (0.0-0.1) Nucleated RBC Absolute Count (auto) 0.01 K/uL Peripheral Blood Smear Y/N Chemistry Test 10/23/18 12:04 Osmolality 254 mOSM/K (275-295) Total Bilirubin 0.4 mg/dl (0.2-1.3) Aspartate Amino Transf (AST/SGOT) 26 U/L (0-35) Alanine Aminotransferase (ALT/SGPT) 32 U/L (0-56) Alkaline Phosphatase 111 U/L (0-126) C-Reactive Protein < 0.5 mg/dl (<1.0) Total Protein 6.6 g/dl (6.3-8.2) Albumin 3.7 g/dl (3.5-5.0) Lipase 66 U/L (23-300) Coagulation Test 10/23/18 12:04 Prothrombin Time 32.2 seconds (12.0-14.4) Prothromb Time International Ratio 3.05 Activated Partial Thromboplast Time 41 seconds (23-35) EKG/Imaging EKG Interpretation PATIENT NAME: LUIS SANTANA : [id number] MR: [id number] V: [id number] EXAM DATE: ORDERING PHYSICIAN: HILLARY BARRIOS TECHNOLOGIST: YOLI Thomas Reason : ABDOMINAL PAIN Blood Pressure : / mmHG Vent. Rate : 072 BPM Atrial Rate : 072 BPM P-R Int : 134 ms QRS Dur : 090 ms QT Int : 398 ms P-R-T Axes : 066 043 061 degrees QTc Int : 435 ms Sinus rhythm No acute appearing findings Confirmed by ROBER CANDELARIO ([id number]) on 10/23/2018 1:01:08 PM Referred By: Confirmed By:ROBER CANDELARIO Imaging PATIENT NAME: Luis Santana : 1945 MR: [id number] V: [id number] EXAM DATE: [id number] ORDERING PHYSICIAN: HILLARY BARRIOS TECHNOLOGIST: Location: [facility] Patient: Luis Santana : 1945 Visit/Account:[id number] Date of Sevice: 10/23/2018 CHEST SINGLE AP HISTORY: Wheezing. History of lupus. COMPARISON: None FINDINGS: Cardiomediastinal contours: The heart size is normal. Lungs and pleura: There is no finding of an infiltrate, lymphadenopathy or pleural effusion. There is mild hyperinflation. Bones/soft tissues: There are no findings of a fracture. IMPRESSION: 1. No active disease on this portal chest x-ray other than mild hyperinflation. ED Course/Re-evaluation ED Course Patient is a 73-year-old female here with complaints of altered mental status, hyponatremia of unknown etiology, mild hypokalemia. Patient was repleted with 40 mEq of potassium, normal saline boluses 2 were administered to initiate correction of hyponatremia. Patient was neurovascularly intact at time of evaluation, chest x-ray showed no acute findings after patient was found to be wheezing bilaterally and was administered. Hannah Cline. I discussed the patient with Dr. Candelario who accepted the patient to the hospitalist service. Patient was hemodynamically stable at time of admission. Decision to Disposition Date: Oct 23, 2018 Decision to Disposition Time: 13:00 Depart Departure Latest Vital Signs Vital Signs Date Time Temp Pulse Resp B/P (MAP) Pulse Ox O2 Delivery O2 Flow Rate FiO2 10/23/18 14:20 85 10/23/18 13:40 20 10/23/18 13:15 88 10/23/18 13:00 140/75 (96) 10/23/18 12:58 Room Air 10/23/18 12:53 3.0 10/23/18 11:59 98.2 Impression: Primary Impression: Hyponatremia Condition: Improved Disposition: Admitted from ER Referrals: MAEGAN BEAN MD (PCP) HILLARY BARRIOS DO Oct 23, 2018 11:58
[2018-10-23] MEDS ORDERED: NS(*) 0.9% 1000 ML BAG 1,000 ML IV ONE ×2 (12:13→14:20)
[2018-10-23 12:21] LABS: PLATELET COUNT, AUTOMATED 384 K/uL (150-450)
--- NOTE | 2018-10-23 12:28 | EKG ---
FACILITY: [facility] [place] PATIENT NAME: LUIS HOLLEY : [id number] MR: [id number] V: [id number] EXAM DATE: ORDERING PHYSICIAN: HILLARY BARRIOS TECHNOLOGIST: YOLI Thomas Reason : ABDOMINAL PAIN Blood Pressure : / mmHG Vent. Rate : 072 BPM Atrial Rate : 072 BPM P-R Int : 134 ms QRS Dur : 090 ms QT Int : 398 ms P-R-T Axes : 066 043 061 degrees QTc Int : 435 ms Sinus rhythm No acute appearing findings Confirmed by ROBER MCGREGOR ([id number]) on 10/23/2018 1:01:08 PM Referred By: Confirmed By:ROBER MCGREGOR
[2018-10-23] MEDS ORDERED: ALBUTEROL/IPRATROPIUM 3 ML NEB NEB ONE (12:50)
[2018-10-23] MEDS ORDERED: POTASSIUM CHL 20 MEQ TABCR PO ONE (12:55)
[2018-10-23 13:11] LABS: INR 3.05
--- NOTE | 2018-10-23 14:25 | RADIOLOGY IMAGING REPORT ---
FACILITY: [facility] PATIENT NAME: Barbara Santana : 1945 MR: [id number] V: [id number] EXAM DATE: ORDERING PHYSICIAN: HILLARY BARRIOS TECHNOLOGIST: [facility] Patient: Barbara Santana : 1945 Visit/Account:[id number] Date of Sevice: 10/23/2018 CHEST SINGLE AP HISTORY: Wheezing. History of lupus. COMPARISON: None FINDINGS: Cardiomediastinal contours: The heart size is normal. Lungs and pleura: There is no finding of an infiltrate, lymphadenopathy or pleural effusion. There i s mild hyperinflation. Bones/soft tissues: There are no findings of a fracture. IMPRESSION: 1. No active disease on this portal chest x-ray other than mild hyperinflation. Report Dictated By: Hong Walker MD at 10/23/2018 2:14 PM Report E-Signed By: Hong Walker MD at 10/23/2018 2:15 PM WSN:[id number]
[2018-10-23 15:02] VITALS: BP 105/60
[2018-10-23] MEDS ORDERED: NS(*) 0.9% 1000 ML BAG 1,000 ML IV PRN (15:23)
[2018-10-23] MEDS ORDERED: NICOTINE INH SYSTEM 10 MG/INH INH PRN (15:25)
[2018-10-23] MEDS ORDERED: ACETAMINOPHEN 325 MG TAB PO PRN (15:25)
[2018-10-23] MEDS ORDERED: VENL150C61 PO (15:44)
[2018-10-23] MEDS ORDERED: LOSA-57 PO (15:44)
[2018-10-23] MEDS ORDERED: ATOR10TA24 PO (15:44)
[2018-10-23] MEDS ORDERED: LEVO50TA86 PO (15:47)
[2018-10-23] MEDS ORDERED: traMADol 50 MG TAB PO PRN (15:50)
--- NOTE | 2018-10-23 16:12 | History & Physical ---
History of Present Illness Chief Complaint Sodium is low History of Present Illness 73yo female with PMHx significant for HTN, SLE manifested with malar rash, mucositis, arthralgias/arthritis, DVTs. She reports episodic problems with low sodium as well. She states her told her this morning she was "rambling too much" and seemed to be "foggy"/confused. At present, she denies any specific complaints other than ongoing pruritus on right hand and multiple sores on oral mucosa that have made eating an drinking more difficult. She was evaluated in the outpatient clinic and ER. She was found to have significant hyponatremia and recommended for admission. History Problems: (1) Depression Status: Chronic (2) Recurrent UTI Status: Chronic (3) RLS (restless legs syndrome) Status: Chronic (4) Malar rash Status: Chronic (5) SLE (systemic lupus erythematosus) Status: Chronic (6) History of DVT (deep vein thrombosis) Status: Chronic (7) Hyponatremia Status: Chronic (8) Anemia Status: Chronic (9) HTN (hypertension) Status: Chronic (10) Hypothyroidism Status: Chronic Home Meds Active Scripts Prednisone (PREDNISONE) 20 Mg Tablet, 40 MG PO DAILY, #10 TAB Take in the morning. Prov:KEVIN HARIRS VICE PRESIDENT [employer]- 09/29/18 Reported Medications Levothyroxine Sodium (LEVOTHYROXINE SODIUM) 50 Mcg Tablet, 50 MCG PO QDAY, TAB 10/23/18 Atorvastatin Calcium (LIPITOR) 10 Mg Tablet, 1 TAB PO QDAY, TAB 10/23/18 Venlafaxine Hcl (EFFEXOR XR) 150 Mg Cap.er.24h, 150 MG PO QDAY 10/23/18 Losartan/Hydrochlorothiazide (LOSARTAN-HCTZ 100-12.5 MG TAB) 1 Each Tablet, 1 EACH PO QDAY 10/23/18 Ropinirole Hcl (ROPINIROLE HCL) 1 Mg Tablet, 1 MG PO QHS 09/29/18 Methenamine Hippurate (METHENAMINE HIPPURATE) 1 Gm Tablet, 1 GM PO BID 09/29/18 Tramadol Hcl (TRAMADOL HCL) 50 Mg Tablet, 50 MG PO Q4-6H PRN for PAIN 05/03/14 Gabapentin (GABAPENTIN) 300 Mg Capsule, 300 MG PO TID, CAPSULE 05/03/14 Amlodipine Besylate (AMLODIPINE BESYLATE) 10 Mg Tablet, 1 TAB PO QDAY, TAB TAKE ONE TABLET BY MOUTH EVERY DAY 05/03/14 Venlafaxine Hcl (Venlafaxine Hcl) 75 Mg Tab.osm.24, 75 MG PO DAILY Take with 150mg tab for a total of 225mg daily 04/22/12 Warfarin Sod (Coumadin (Or Equiv)) 5 Mg Tab, 5 MG PO QDAY 2.5mg on WED, TUE, TUE and 5mg all other days 04/11/12 Discontinued Reported Medications Desonide (DESONIDE) 5 Gm Powder, 5 GM MC 09/29/18 Linaclotide (LINZESS) 290 Mcg Capsule, 290 MCG PO, CAPSULE 09/29/18 Discontinued Scripts Cephalexin 500 Mg Tab (KEFLEX 500 MG TAB) 500 Mg Tablet, 500 MG PO Q6H, #28 TAB Prov:JUAREZKEVIN TRAYLOR VICE PRESIDENT [employer] CHAIN-BC 09/29/18 Allergies: Coded Allergies: Sulfa (Sulfonamide Antibiotics) (Verified Allergy, Intermediate, RASH, 09/29/18) Influenza Virus Vaccines (Verified Adverse Reaction, Unknown, 09/29/18) Other Social/Family Hx She is and lives in [place]. She has three grown children with multiple grandchildren and great grandchildren. Hx Smoking: Yes (/ PPD) Smoking Status: Current: Every Day Smoker Exposure to Second Hand Smoke?: Yes Caffeine Intake: Coffee Caffeine/Cups Per Day: 6 Hx Alcohol Use: Yes Hx Substance Use Disorder: No History of IV Drug Use: No Review of Systems Constitutional: No Fever, No Chills, No Night Sweats Neurological: Confusion; No Syncope, No Weakness Eyes: No Vision Change, No Loss of Vision ENT: No Hearing Loss Cardiovascular: No Chest Pain, No Palpitations Respiratory: No Shortness of Breath, No Cough, No Wheezing Gastrointestinal: No Nausea, No Vomiting, No Diarrhea, No Constipation, No Hematemesis, No Hematochezia, No Melena, No Abdominal Pain Genitourinary: No Dysuria, No Hematuria, No Urinary Incontinence Musculoskeletal: Pain Psychiatric: Depression Exam Vital Signs Vital Signs Date Time Temp Pulse Resp B/P (MAP) Pulse Ox O2 Delivery O2 Flow Rate FiO2 10/23/18 15:40 95 10/23/18 15:19 Room Air 10/23/18 15:02 97.7 84 12 105/60 (75) 10/23/18 12:53 3.0 General Appearance: Alert, Awake Neuro: No Gross deficits Eyes: PERRLA, Other (sclera anicteric) ENT: Other (dentures/several small, shallow ulcerations over soft palate are visible) Neck: No Masses Cardiovascular: Regular Rate and Rhythm (soft systolic murmur at RUSB/apex), No JVD Respiratory: Other (few scattered rhonchi) Chest: No Tenderness GI: Abd Soft and Non-Tender : No CVA Tenderness Lymph: No Adenopathy Extremities: Warm, Perfused Integumentary: Generalized Fragile Skin, Other (malar rash/ulcerating rash over dorsum of right hand/few scattered areas on right forearm) Psych: Alert & Oriented X3 Medical Decision Making Data Points Result Diagram: 10/23/18 1204 10/23/18 1204 Item Value Date Time Urine Mucus None /HPF 10/23/18 1450 Urine Bacteria Negative /HPF 10/23/18 1450 Urine Squamous Epithelial Cells None /LPF 10/23/18 1450 Urine WBC None /HPF 10/23/18 1450 Urine RBC <1 /HPF 10/23/18 1450 Urine Leukocyte Esterase Negative 10/23/18 1450 Urine Urobilinogen Negative mg/dL 10/23/18 1450 Urine Bilirubin Negative 10/23/18 1450 Urine Nitrite Negative 10/23/18 1450 Urine Blood Negative 10/23/18 1450 Urine Ketones Negative mg/dL 10/23/18 1450 Urine Glucose (UA) Negative mg/dL 10/23/18 1450 Urine Protein Negative mg/dL 10/23/18 1450 Urine Specific [place] 1.001 10/23/18 1450 Urine pH 7.0 pH 10/23/18 1450 Urine Clarity Clear 10/23/18 1450 Urine Color Colorless 10/23/18 1450 Urine Random Sodium 5 MEQ/L 09/29/18 1445 Urine Osmolality 80 mosm/K L 09/29/18 1445 Item Value Date Time Lipase 66 U/L 10/23/18 1204 Albumin 3.7 g/dl 10/23/18 1204 Total Protein 6.6 g/dl 10/23/18 1204 C-Reactive Protein < 0.5 mg/dl 10/23/18 1204 Alkaline Phosphatase 111 U/L 10/23/18 1204 Alanine Aminotransferase (ALT/SGPT) 32 U/L 10/23/18 1204 Aspartate Amino Transf (AST/SGOT) 26 U/L 10/23/18 1204 Total Bilirubin 0.4 mg/dl 10/23/18 1204 Calcium Level 8.6 mg/dl 10/23/18 1204 Osmolality 254 mOSM/K L 10/23/18 1204 Activated Partial Thromboplast Time 41 seconds H 10/23/18 1204 Prothromb Time International Ratio 3.05 10/23/18 1204 Prothrombin Time 32.2 seconds H 10/23/18 1204 EKG / Imaging EKG Interpretation PATIENT NAME: LUIS SANTANA : [id number] MR: [id number] V: [id number] EXAM DATE: ORDERING PHYSICIAN: HILLARY BARRIOS TECHNOLOGIST: YOLI Thomas Reason : ABDOMINAL PAIN Blood Pressure : / mmHG Vent. Rate : 072 BPM Atrial Rate : 072 BPM P-R Int : 134 ms QRS Dur : 090 ms QT Int : 398 ms P-R-T Axes : 066 043 061 degrees QTc Int : 435 ms Sinus rhythm No acute appearing findings Confirmed by ROBER MCGREGOR ([id number]) on 10/23/2018 1:01:08 PM Referred By: Confirmed By:ROBER MCGREGOR Imaging PATIENT NAME: Luis Santana : 1945 MR: [id number] V: [id number] EXAM DATE: [id number] ORDERING PHYSICIAN: HILLARY BARRIOS TECHNOLOGIST: Location: [facility] Patient: Luis Santana : 1945 Visit/Account:[id number] Date of Sevice: 10/23/2018 CHEST SINGLE AP HISTORY: Wheezing. History of lupus. COMPARISON: None FINDINGS: Cardiomediastinal contours: The heart size is normal. Lungs and pleura: There is no finding of an infiltrate, lymphadenopathy or pleural effusion. There is mild hyperinflation. Bones/soft tissues: There are no findings of a fracture. IMPRESSION: 1. No active disease on this portal chest x-ray other than mild hyperinflation. Report Dictated By: Hong Walker MD at 10/23/2018 2:14 PM Report E-Signed By: Hong Walker MD at 10/23/2018 2:15 PM WSN:[facility] Assessment and Plan Problems: (1) Hyponatremia Status: Chronic Assessment & Plan: Appears to be intermittent. Her sodium was 131 three weeks ago, so it does not appear to be severe, long-term/chronic. She is on a diuretic (in combination with her losartan), so will hold this. She will get gentle IV saline and monitor labs closely. Will check urine osmolality, but the labs done a few weeks ago would be consistent with diuretic use. (2) Hypokalemia Status: Acute Assessment & Plan: Probably due to diuretic as well. Will give supplement and watch labs. (3) Depression Status: Chronic Assessment & Plan: Continue her Effexor XR 225mg daily. If it turns out to look more like an SIADH picture, this medication could be problematic. (4) SLE (systemic lupus erythematosus) Status: Chronic Assessment & Plan: She is currently managed with prednisone 40mg daily. Will bump up to 60mg daily short term. Will also continue topical steroid. She may need some oral symptom relief (Magic Mouthwash) as well. (5) Hypothyroidism Status: Chronic Assessment & Plan: Will continue her L-thyroxine 50mcg daily. Check TSH. (6) HTN (hypertension) Status: Chronic Assessment & Plan: Will continue amlodipine 10mg daily for now. Hold her Losartan HCTZ as it may be culprit for her hyponatremia. If needed may resume her Losartan alone. (7) History of DVT (deep vein thrombosis) Status: Chronic Assessment & Plan: Continue her warfarin 5mg 4 days a week and 2.5mg 3 days a week. Watch INR. (8) RLS (restless legs syndrome) Status: Chronic Assessment & Plan: Continue ropinirole 1mg qHS. Copies to: MARIA ELENA GALAVIZ MD ; Venous Thromboembolism Antithrombotics Is Pt On Any Antithrombotics?: Yes (warfarin) Exam Sepsis Risk: No Definite Risk ROBER MCGREGOR MD Oct 23, 2018 16:12
[2018-10-23] MEDS: POLYSACCHARIDE IRON COM 150 MG PO SCH (16:35)
[2018-10-23] MEDS ORDERED: WARFARIN SOD 5 MG TAB PO ONE (18:40)
[2018-10-23 19:05] VITALS: BP 96/51
[2018-10-23] MEDS ORDERED: MAGIC MOUTHWASH 90 ML BTL PO PRN (19:40)
[2018-10-23] MEDS: GABAPENTIN 300 MG CAP PO SCH (20:50)
[2018-10-23] MEDS: METHENAMINE PO SCH (20:50)
[2018-10-23] MEDS: METHYLENE BLUE PO SCH (20:50)
[2018-10-23] MEDS: PHENYL SALICYLATE PO SCH (20:50)
[2018-10-23] MEDS: HYOSCYAMINE PO SCH (20:50)
[2018-10-23] MEDS: [UNRECOGNIZED DRUG - OTHER] PO SCH (20:50)
[2018-10-23] MEDS: TRIAMCINOLONE ACE 0.1% CR 80GM TP SCH (20:51)
[2018-10-23 23:29] VITALS: BP 84/51
[2018-10-24 03:31] VITALS: BP 111/61
[2018-10-24 05:55] LABS: PLATELET COUNT, AUTOMATED 340 K/uL (150-450)
[2018-10-24] MEDS ORDERED: LEVOTHYROXINE SOD 0.05 MG TAB PO SCH (06:00)
[2018-10-24 06:10] LABS: INR 3.58
[2018-10-24 07:55] VITALS: BP_SYST 11; BP_SYST 111; BP_DIAS 75
[2018-10-24] MEDS: TRIAMCINOLONE ACE 0.1% CR 80GM TP SCH (08:30)
[2018-10-24] MEDS: POLYSACCHARIDE IRON COM 150 MG PO SCH (08:30)
[2018-10-24] MEDS: GABAPENTIN 300 MG CAP PO SCH ×2 (08:30→14:12)
[2018-10-24] MEDS: [UNRECOGNIZED DRUG - OTHER] PO SCH (08:33)
[2018-10-24] MEDS: PHENYL SALICYLATE PO SCH (08:33)
[2018-10-24] MEDS: METHENAMINE PO SCH (08:33)
[2018-10-24] MEDS: METHYLENE BLUE PO SCH (08:33)
[2018-10-24] MEDS: HYOSCYAMINE PO SCH (08:33)
[2018-10-24] MEDS ORDERED: VENLAFAXINE XR 75 MG CAPCR PO SCH (09:00)
[2018-10-24] MEDS ORDERED: predniSONE 20 MG TAB PO SCH (09:00)
[2018-10-24] MEDS ORDERED: amLODIPine BESYL(*) 5 MG TAB PO SCH (09:00)
[2018-10-24] MEDS ORDERED: ATORVASTATIN 10 MG TAB PO SCH (09:00)
--- NOTE | 2018-10-24 11:36 | Medical Nutrition Therapy ---
Nutrition Anthropometrics Height (Inches): 63.00 Height (Calculated Centimeters: 160.342753 Weight (Pounds): 133 Weight (Calculated Kilograms): 60.645 BMI: 23.7 El Nutrition Score: Adequate El Nutrition Risk Score: 21 Dietary Referral Nutrition Risk Factors: Nutrition Risk Comment: Physical Findings Physical Appearance: WNR Skin Appearance Skin Appearance: Edema Edema Location Modifier: Edema Location: Type of Edema: Degree of Edema: Gastrointestinal Symptoms GI Symtoms: Tube Present: Bowel Sounds: Recent Bowel Pattern: Stool Characteristics: Nutrition/Food History Fair Snacks: Typically snacks throughout the day. Nutritional Diagnosis Nutritional Risk Acuity 3: Fair Appetite Past Medical History: SLE, HTN, DVT, Depression Nutritional Acuity: 3-Mild Energy Requirement: 1409 Protein Requirement: 60 (1g/kg) Fluid Requirement: 1814 (30mL/kg) Nutrition Monitoring & Eval Nutrition Goals: Eat 75-100% Meal Nutrition Follow-Up: Fair Intake RD Patient Assessment Time: [address] Assessment Type: RD Assessment Patient Nutrition Acuity: 3-Mild Follow Up Date: Oct 29, 2018 Nutritional Comment: 10/24/18-Pt admit for hyponatremia, hypokalemia. Pt has SLE, has mucositis which has been interfering with po intake. Pt takes predinsone daily. Pt states her wt has been stable (130-133 lbs), she snacks throughout the day rather than having meals. Spoke with pt about ways to increase protein intake (some research shows increased protein excretion with steroids). Discussed drinking protein shakes, easy to consume foods high in protein. Discussed foods high in potassium.RENE GLOVER Oct 24, 2018 11:36
[2018-10-24 14:00] VITALS: BP 117/68
--- NOTE | 2018-10-24 14:34 | Hospitalist Depart ---
Discharge Summary Reason for Hosp/Final Diag: (1) Hyponatremia Status: Chronic Hospital Course & Plan: Appears to be intermittent. Her sodium was 131 three weeks ago, so it does not appear to be severe, long-term/chronic. Sodium improved with IV fluids and stopping HCTZ. Recommend stopping HCTZ. (2) Hypokalemia Status: Acute Hospital Course & Plan: Probably due to diuretic as well. Improved (3) Depression Status: Chronic Hospital Course & Plan: Continue her Effexor XR 225mg daily. (4) SLE (systemic lupus erythematosus) Status: Chronic Hospital Course & Plan: She is currently managed with prednisone 40mg daily for Lupus flare. Recommend follow up with public address systems mechanic in near future to reevaluate medication regimen. (5) Hypothyroidism Status: Chronic Hospital Course & Plan: Continue her L-thyroxine 50mcg daily. (6) HTN (hypertension) Status: Chronic Hospital Course & Plan: Continue amlodipine 10mg daily for now. Hold her Losartan HCTZ as it may be culprit for her hyponatremia. Follow up with PCP to reevaluate antihypertensive regimen, BP normal on amlodipine alone. (7) History of DVT (deep vein thrombosis) Status: Chronic Hospital Course & Plan: Continue her warfarin 5mg 4 days a week and 2.5mg 3 days a week. (8) RLS (restless legs syndrome) Status: Chronic Hospital Course & Plan: Continue ropinirole 1mg QHS. Departure Weight (Pounds): 133 Weight (Ounces): 11.2 Result Diagram: 10/24/1852310/24/18 0541 Condition: Improved Discharge: Home Discharge Instructions Home Meds Active Scripts Prednisone (PREDNISONE) 20 Mg Tablet, 40 MG PO DAILY, #10 TAB Take in the morning. Prov:KEVIN HARRIS TECHNICAL INTERN-BC 09/29/18 Reported Medications Levothyroxine Sodium (LEVOTHYROXINE SODIUM) 50 Mcg Tablet, 50 MCG PO QDAY, TAB 10/23/18 Atorvastatin Calcium (LIPITOR) 10 Mg Tablet, 1 TAB PO QDAY, TAB 10/23/18 Venlafaxine Hcl (EFFEXOR XR) 150 Mg Cap.er.24h, 150 MG PO QDAY 10/23/18 Ropinirole Hcl (ROPINIROLE HCL) 1 Mg Tablet, 1 MG PO QHS 09/29/18 Methenamine Hippurate (METHENAMINE HIPPURATE) 1 Gm Tablet, 1 GM PO BID 09/29/18 Tramadol Hcl (TRAMADOL HCL) 50 Mg Tablet, 50 MG PO Q4-6H PRN for PAIN 05/03/14 Gabapentin (GABAPENTIN) 300 Mg Capsule, 300 MG PO TID, CAPSULE 05/03/14 Venlafaxine Hcl (Venlafaxine Hcl) 75 Mg Tab.osm.24, 75 MG PO DAILY Take with 150mg tab for a total of 225mg daily 04/22/12 Warfarin Sod (Coumadin (Or Equiv)) 5 Mg Tab, 5 MG PO QDAY 2.5mg TU, THURS, FRI, SAT, SUN 5mg MON, WED 04/11/12 Discontinued Reported Medications Losartan/Hydrochlorothiazide (LOSARTAN-HCTZ 100-12.5 MG TAB) 1 Each Tablet, 1 EACH PO QDAY 10/23/18 Amlodipine Besylate (AMLODIPINE BESYLATE) 10 Mg Tablet, 1 TAB PO QDAY, TAB TAKE ONE TABLET BY MOUTH EVERY DAY 05/03/14 Desonide (DESONIDE) 5 Gm Powder, 5 GM MC 09/29/18 Linaclotide (LINZESS) 290 Mcg Capsule, 290 MCG PO, CAPSULE 09/29/18 Discontinued Scripts Cephalexin 500 Mg Tab (KEFLEX 500 MG TAB) 500 Mg Tablet, 500 MG PO Q6H, #28 TAB Prov:KEVIN HARRIS TECHNICAL INTERN-BC 09/29/18 Diet: Regular Activity: As Tolerated Special Instructions: Stop taking your losartan/HCTZ medication. Follow up with Dr Galaviz to reevaluate your blood pressure. Follow up with Dr Mejias on your Lupus and prednisone dosing Copies to: PK MEJIAS MD; MARIA ELENA GALAVIZ MD ; Venous Thromboembolism Antithrombotics Is Pt On Any Antithrombotics?: Yes (warfarin) SHERLYN WALKERDONOVAN Oct 24, 2018 14:34
[2018-10-24] MEDS ORDERED: WARFARIN SOD 2.5 MG TAB PO SCH (17:00)
[2018-10-25] MEDS ORDERED: WARFARIN SOD 5 MG TAB PO SCH (17:00)
== END 2018-10-24 15:44 | disposition home or self-care (01) | DRG 641 ==
LOC: ER 12:03 → MED 14:33
PROVIDERS: ADMIT Internal Medicine; ATTEND Internal Medicine
DX: E87.1 Hypo-osmolality and hyponatremia (principal); E87.6 Hypokalemia; G25.81 Restless legs syndrome; I10 Essential (primary) hypertension; F17.210 Nicotine dependence, cigarettes, uncomplicated; F32.9 Major depressive disorder, single episode, unspecified; M32.9 Systemic lupus erythematosus, unspecified; R21 Rash and other nonspecific skin eruption; D64.9 Anemia, unspecified; E03.9 Hypothyroidism, unspecified; Z86.718 Personal history of other venous thrombosis and embolism; Z88.2 Allergy status to sulfonamides; Z88.6 Allergy status to analgesic agent; Z87.440 Personal history of urinary (tract) infections
CPT/HCPCS: 36415; 71045; 81001; 82040; 82247; 82310; 82374; 82435; 82565; 82947; 83690; 83930; 84075; 84132; 84155; 84295; 84443; 84450; 84460; 84520; 85025; 85610; 85730; 86140; 93005; 94640; 96360; 96361; 99284; J7030; J7512